=== PATIENT | male | born 1960 | race Caucasian/White ===

== ENCOUNTER → 2020-04-04 15:37 | Outpatient (CLI) | payer BC, SELFPAY ==
--- NOTE | ~2020-04-04 | CT_ITS ---
EXAMINATION:CT lung screening DATE: 04/04/2020 15:58 INDICATION: Personal history of tobacco dependence. Current smoker with 63 pack year history. TECHNIQUE: Computed tomography (CT) of the chest was performed without intravenous contrast. Automate d exposure control and iterative reconstruction technique were employed. The dose-length product (DLP ) was 185.28 mGy-cm. COMPARISON: Chest 2 views 05/31/2018 FINDINGS: There is a staple line in right upper lobe from wedge resection. There is a mild burden of peripheral reticular opacities in right lung, likely chronic lung disease. There is mild pleural thic kening in right lower lung zone posteriorly. There are mild airspace opacities in right lower lobe ab utting the pleural thickening, likely rounded atelectasis. No pleural effusion. The heart size is nor mal. There are coronary artery calcifications. There are calcifications of aortic valve. No pericardi al effusion. There is mild bilateral gynecomastia. There are bridging endplate osteophytes at multipl e levels in the spine, consistent with diffuse idiopathic skeletal hyperostosis (DISH). IMPRESSION: 1. Lung-RADS category 2: Benign appearance or behavior. Continue annual screening with noncontrast lo w-dose chest CT in 12 months. Reviewed, dictated and finalized at location A. IMPRESSION: 1. Lung-RADS category 2: Benign appearance or behavior. Continue annual screeni ng with noncontrast low-dose chest CT in 12 months.
== END ==
PROVIDERS: PCP Emergency Medicine; Visit Provider Emergency Medicine
DX: Z12.2 Encounter for screening for malignant neoplasm of respiratory organs (principal); Z87.891 Personal history of nicotine dependence
CPT/HCPCS: G0297

== ENCOUNTER → 2021-07-10 09:46 | Outpatient (CLI) | payer BC, SELFPAY ==
--- NOTE | ~2021-07-10 | CT_ITS ---
EXAMINATION: CT lung screening DATE: 07/10/2021 10:13 INDICATION: Tobacco use TECHNIQUE: Computed tomography (CT) of the chest was performed without intravenous contrast. Addition al 3D reconstructions utilizing coronal maximum intensity projection (MIP) were performed. Automated exposure control and iterative reconstruction technique were employed. The dose-length product was 29 8.50 mGy-cm. COMPARISON: None FINDINGS: Suture lines in the right upper lobe along the right minor fissure with some associated linear pleura l parenchymal scarring. Stable appearance of mild pleural thickening and linear atelectasis/scarring along site of the lateral right lung at the site of a prior right thoracotomy with resection of porti ons of the lateral right sixth rib. Also unchanged is approximately 5 mm pleural-based nodule with sp iculated margins at the posterior sulcus of the right lower lobe also most likely related to scarring no other new or enlarging suspicious pulmonary nodules. No pulmonary edema, pneumonia or pleural eff usion. Heart size is normal. Atherosclerotic coronary artery calcifications. Small amount evident mcihael ear pericardial calcification with no pericardial effusion. Aortic valve calcification. Thoracic aort a is normal in caliber. No pathologically enlarged thoracic lymphadenopathy. Mild bilateral gynecomas tia. Chronic to mild anterior wedging of a few mid thoracic vertebral bodies. There are bridging oste ophytes at multiple levels in the spine, consistent with diffuse idiopathic skeletal hyperostosis (DI SH). IMPRESSION: 1. Lung-RADS category 2: Benign appearance or behavior. Continue annual screening with noncontrast lo w-dose chest CT in 12 months. Reviewed, dictated and finalized at location B. 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 Lung-RADS category 2: Benign appearance or behavior. Continue annual screeni ng with noncontrast low-dose chest CT in 12 months.
== END ==
PROVIDERS: PCP Emergency Medicine; Visit Provider Emergency Medicine
DX: Z72.0 Tobacco use (principal)
CPT/HCPCS: 71271

== ENCOUNTER → 2022-07-13 10:58 | Outpatient (CLI) | payer BC, SELFPAY ==
--- NOTE | ~2022-07-13 | XR_ITS ---
EXAM: XR knee RT 2V DATE: 07/13/2022 11:36 HISTORY: Pain of right knee . COMPARISON: None available. FINDINGS: Normal mineralization. No fracture or dislocation. No lytic or blastic lesion. Mild medial joint space narrowing. Mild tricompartmental osteophytosis. Quadriceps enthesopathy. No erosion or p eriosteal change. Soft tissues within normal limits. IMPRESSION: Mild right knee osteoarthritis. Reviewed, dictated and finalized at location K. 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
--- NOTE | ~2022-07-13 | US_ITS ---
EXAMINATION: US thyroid DATE: 07/13/2022 11:15 INDICATION: Hypothyroidism. TECHNIQUE: Multiple ultrasound images of the thyroid were obtained. COMPARISON: None. FINDINGS: The right thyroid lobe measures 4.6 x 1.6 x 1.6 cm. The left thyroid lobe measures 4.0 x 1.6 x 1.8 c m. The isthmus measures 0.4 cm. There is normal echotexture and echogenicity throughout the thyroid g land. 4 mm inferior left thyroid cyst, of doubtful clinical significance. Otherwise, no discrete nodu les identified. Normal vascular flow is present. IMPRESSION: Unremarkable thyroid ultrasound findings. Reviewed, dictated and finalized at location K. 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
== END ==
PROVIDERS: PCP Emergency Medicine; Visit Provider Emergency Medicine
DX: E03.9 Hypothyroidism, unspecified (principal); M17.11 Unilateral primary osteoarthritis, right knee
CPT/HCPCS: 73560; 76536

== ENCOUNTER → 2023-01-13 10:51 | Outpatient (CLI) | payer BC, SELFPAY ==
--- NOTE | ~2023-01-13 | CT_ITS ---
CT Scan of the Chest without Contrast: Clinical Indication: Lung cancer screening, personal history of nicotine dependence Technique: Contiguous sections were acquired throughout the chest without intravenous contrast. Dose reduction technique was used on this scan by utilizing automated exposure control and iterative recon struction technique. The dose-length product (DLP) was 239.44 mGy-cm. COMPARISON: 07/10/2021 and 04/04/2020 Findings: There is no evidence of any significant mediastinal, hilar or axillary lymphadenopathy. Stable perica rdial calcification noted. Coronary artery calcifications are also present. There is no evidence of pleural or pericardial effusion. Stable postoperative change in the right lung. No pulmonary nodule evident. Images through the upper abdomen reveal no abnormalities. There is DISH of the thoracic spine. Impression: Lung RADS 2: Benign appearance. 12 month follow-up screening CT advised. Reviewed, dictated and finalized at [facility]. Impression: Lung RADS 2: Benign appearance. 12 month follow-up screening CT advised.
== END ==
PROVIDERS: PCP Emergency Medicine; Visit Provider Emergency Medicine
DX: Z12.2 Encounter for screening for malignant neoplasm of respiratory organs (principal); Z87.891 Personal history of nicotine dependence
CPT/HCPCS: 71271